=== PATIENT | female | born 1950 | race Caucasian/White ===

== ENCOUNTER 2021-04-14 08:03 | Emergency (ER) | payer MEDICARE ==
[2021-04-14] MEDS ORDERED: CYCLOBENZAPRINE10 MG PO (09:51)
== END 2021-04-14 10:43 | disposition home or self-care (01) ==
LOC: ER1 08:03
DX: S39.012A Strain of muscle, fascia and tendon of lower back, initial encounter (principal); S76.012A Strain of muscle, fascia and tendon of left hip, initial encounter; I10 Essential (primary) hypertension; Z88.0 Allergy status to penicillin; W01.0XXA Fall on same level from slipping, tripping and stumbling without subsequent striking against object, initial encounter
CPT/HCPCS: 72131; 72170; 73564; 99284